=== PATIENT | female | born 1970 | race Caucasian/White ===

== ENCOUNTER 2023-03-09 23:35 | Observation (INO) | payer OTHER ==
[2023-03-10 03:52] VITALS: BMI 38.2
[2023-03-10] MEDS ORDERED: Ondansetron PF 4 MG/2 ML Vial IVP PRN (04:57)
[2023-03-10] MEDS ORDERED: Acetaminophen 325 MG TAB PO PRN (04:57)
[2023-03-10] MEDS ORDERED: Dextrose 50% Abboject 50 ML SYRINGE SLOW IVP PRN (05:11)
[2023-03-10] MEDS ORDERED: Dextrose 5% in Water 1,000 ML IV PRN (05:11)
[2023-03-10] MEDS ORDERED: HumaLOG 300 UNITS/3 ML VIAL SC PRN ×2 (05:11)
[2023-03-10] MEDS ORDERED: Glucagon 1 MG/ML KIT IM PRN (05:11)
[2023-03-10 08:10] LABS: #Eosinphils 0.1 thou/uL (0.0-0.7); #Monocytes 0.3 thou/uL (0.11-0.59); #Neutrophils 2.1 thou/uL (1.40-6.50); %Basophils 0.8 % (0.0-1.0); %Eosinophils 3.2 % (0.0-10.0); %Lymphocytes 33.2 % (21.0-51.0); %Neutrophils 54.5 % (42.0-75.0); Hematocrit 39.3 % (36.0-47.0); Hemoglobin 12.8 g/dL (12.0-16.0); Mean Corpuscular HGB CONC 32.6 g/dL (32.0-36.0); Mean Corpuscular Hemoglobin 31.1 pg (27.0-31.0); Mean Corpuscular Volume 95.6 fl (78.0-98.0); Mean Platelet Volume 10.7 fL (7.4-10.4); Platelet Count 236 10x3/uL (130-400); RBC Distribution Width 12.5 % (11.5-14.5); Red Blood Cell (RBC) Count 4.11 mill/uL (4.20-5.40); White Blood Cell (WBC) Count 3.8 10x3/uL (4.8-10.8)
[2023-03-10 08:32] LABS: Anion Gap 13 mmol/L (10-20); BUN (Urea Nitrogen) 16 mg/dL (9.8-20.1); Calc. Creatinine Clearance 134 mL/min (70-130); Calcium 8.6 mg/dL (7.8-10.44); Carbon Dioxide 21 mmol/L (22-29); Chloride 108 mmol/L (98-107); Estimated GFR 98; Glucose 86 mg/dL (70-105); Potassium 4.5 mmol/L (3.5-5.1); Sodium 137 mmol/L (136-145)
[2023-03-10] MEDS ORDERED: Non-Formulary Item 1 EACH (Buspirone Hcl [Buspirone Hcl] 15 MG Tablet) PO SCH (09:00)
[2023-03-10] MEDS ORDERED: Non-Formulary Item 1 EACH (Fluoxetine Hcl [Fluoxetine Hcl] 40 MG Capsule) PO SCH (09:00)
[2023-03-10] MEDS ORDERED: Non-Formulary Item 1 EACH (Multivitamin [Multi-Vitamin Daily] 1 TABLET Tablet) PO SCH (09:00)
[2023-03-10] MEDS: Multivit, Therapeutic 1 TAB PO SCH (09:33)
[2023-03-10] MEDS: Cyanocobalamin (Vitamin B-12) 1,000 MCG TAB PO SCH (09:34)
[2023-03-10] MEDS: FLUoxetine HCl 20 MG CAP PO SCH (09:34)
[2023-03-10] MEDS: Folic Acid 1 MG TAB PO SCH (09:34)
[2023-03-10] MEDS ORDERED: Gentamicin 80 MG/2 ML VIAL ONE (14:04)
[2023-03-10] MEDS ORDERED: Lidocaine 1% (PF) 30 ML VIAL ONE ×2 (14:04→15:14)
[2023-03-10] MEDS ORDERED: CEFAZOLIN 1 GM VIAL ONE (14:04)
[2023-03-10] MEDS ORDERED: CEFAZOLIN 2 GM VIAL ONE ×2 (14:04→14:05)
[2023-03-10] MEDS ORDERED: fentaNYL 50 mcg/mL 1 mL Vial ONE ×2 (14:45→15:09)
[2023-03-10] MEDS ORDERED: Midazolam HCl 2 mg/2 ml Vial ONE ×2 (14:45→15:09)
[2023-03-10] MEDS ORDERED: Acetaminophen/Codeine 30-300mg Tablet PO PRN (15:53)
[2023-03-10] MEDS: Cephalexin 250 MG CAP PO SCH ×2 (17:06→23:24)
[2023-03-10] MEDS ORDERED: Cephalexin 250 MG CAP PO SCH (18:00)
[2023-03-10] MEDS: busPIRone HCl 5 MG TAB PO SCH (20:18)
[2023-03-11 05:36] LABS: #Eosinphils 0.1 thou/uL (0.0-0.7); #Monocytes 0.4 thou/uL (0.11-0.59); #Neutrophils 2.5 thou/uL (1.40-6.50); %Basophils 0.7 % (0.0-1.0); %Eosinophils 2.9 % (0.0-10.0); %Lymphocytes 30.7 % (21.0-51.0); %Neutrophils 56.5 % (42.0-75.0); Hematocrit 39.9 % (36.0-47.0); Hemoglobin 13.1 g/dL (12.0-16.0); Mean Corpuscular HGB CONC 32.8 g/dL (32.0-36.0); Mean Corpuscular Hemoglobin 31.6 pg (27.0-31.0); Mean Corpuscular Volume 96.1 fl (78.0-98.0); Mean Platelet Volume 10.7 fL (7.4-10.4); Platelet Count 236 10x3/uL (130-400); RBC Distribution Width 12.6 % (11.5-14.5); Red Blood Cell (RBC) Count 4.15 mill/uL (4.20-5.40); White Blood Cell (WBC) Count 4.4 10x3/uL (4.8-10.8)
[2023-03-11] MEDS: Cephalexin 250 MG CAP PO SCH ×2 (05:40→12:16)
[2023-03-11 05:59] LABS: Anion Gap 15 mmol/L (10-20); BUN (Urea Nitrogen) 15 mg/dL (9.8-20.1); Calc. Creatinine Clearance 121 mL/min (70-130); Calcium 9.2 mg/dL (7.8-10.44); Carbon Dioxide 22 mmol/L (22-29); Chloride 108 mmol/L (98-107); Estimated GFR 87; Glucose 85 mg/dL (70-105); Potassium 5.2 mmol/L (3.5-5.1); Sodium 140 mmol/L (136-145)
[2023-03-11] MEDS: FLUoxetine HCl 20 MG CAP PO SCH (08:40)
[2023-03-11] MEDS: busPIRone HCl 5 MG TAB PO SCH (08:40)
[2023-03-11] MEDS: Folic Acid 1 MG TAB PO SCH (08:41)
[2023-03-11] MEDS: Multivit, Therapeutic 1 TAB PO SCH (08:41)
[2023-03-11] MEDS: Cyanocobalamin (Vitamin B-12) 1,000 MCG TAB PO SCH (08:41)
[2023-03-11 11:32] VITALS: BP 124/84; TEMP 97.6
== END 2023-03-11 14:30 | disposition home or self-care (01) ==
LOC: 2NO 23:35
PROVIDERS: ADMIT Internal Medicine; ATTEND Internal Medicine
DX: R00.1 Bradycardia, unspecified (principal); E11.9 Type 2 diabetes mellitus without complications; F41.8 Other specified anxiety disorders; E78.5 Hyperlipidemia, unspecified; Z86.16 Personal history of COVID-19; Z86.73 Personal history of transient ischemic attack (TIA), and cerebral infarction without residual deficits; Z86.711 Personal history of pulmonary embolism; Z79.899 Other long term (current) drug therapy; Z79.01 Long term (current) use of anticoagulants
CPT/HCPCS: 33206; 33207; 36415; 36416; 71045; 80048; 85025; 99152; 99153; C1786; C1898; G0378; J0690; J1580; J2001; J2250; J3010

== ENCOUNTER 2023-06-22 17:00 | Outpatient (CLI) | payer OTHER | END 2023-06-22 17:01 | disposition home or self-care (01) | LOC: SLEEPLAB 17:00 | PROVIDERS: ATTEND Internal Medicine | DX: G47.33 Obstructive sleep apnea (adult) (pediatric) (principal); G47.10 Hypersomnia, unspecified | CPT/HCPCS: 95810 ==